=== PATIENT | male | born 1995 | race Two or more races ===

== ENCOUNTER 2019-11-10 13:11 | Emergency (ER) | payer BC ==
[~2019-11-10] VITALS: Ht 170.2 cm; Wt 99.8 kg
--- NOTE | 2019-11-10 13:44 | NUR ---
Patient discharged to home in stable condition. Written and verbal after care instructions given to patient and family. Patient verbalized understanding & compliance of instructions.
== END 2019-11-10 13:45 | disposition home or self-care (01) ==
LOC: ER 13:22
DX: L72.3 Sebaceous cyst (principal); F17.200 Nicotine dependence, unspecified, uncomplicated
CPT/HCPCS: A4663